=== PATIENT | female | born 1990 | race Two or more races ===

== ENCOUNTER 2020-10-20 11:38 | Outpatient (CLI) | payer OTHER | END 2020-10-20 11:39 | disposition home or self-care (01) | LOC: LAB 11:38 | DX: Z03.818 Encounter for observation for suspected exposure to other biological agents ruled out (principal) ==

== ENCOUNTER 2020-10-25 08:31 | Outpatient (CLI) | payer OTHER | END 2020-10-25 15:00 | disposition home or self-care (01) | LOC: LAB 08:31 | PROVIDERS: ATTEND Emergency Medicine Pediatric Emergency Medicine | DX: Z03.818 Encounter for observation for suspected exposure to other biological agents ruled out (principal) ==